=== PATIENT | male | born 1960 | race Two or more races ===

== ENCOUNTER 2024-06-11 15:14 | Emergency (ER) | payer OTHER ==
[~2024-06-11] VITALS: Ht 170.2 cm; Wt 81.6 kg
[2024-06-11] MEDS ORDERED: ONDANSETRON HCL/PF 4 MG/2 ML VIAL ONE (15:48)
[2024-06-11] MEDS ORDERED: MORPHINE SULFATE INJ 4 MG/ML DISP.SYRIN ONE (15:48)
[2024-06-11] MEDS: MORPHINE SULFATE INJ 2 MG/ML DISP.SYRIN IV ONE (15:56)
[2024-06-11] MEDS: ONDANSETRON HCL/PF 4 MG/2 ML VIAL IVP ONE (15:57)
[2024-06-11 16:11] LABS: BASOPHILS # (AUTO) 0.1 K/uL (0.0-0.2); BASOPHILS % (AUTO) 0.7 % (0.0-2.0); EOSINOPHILS # (AUTO) 0.1 K/uL (0.0-0.7); EOSINOPHILS % (AUTO) 0.5 % (0.0-6.0); HEMATOCRIT 45 % (39-51); HEMOGLOBIN 15.2 g/dL (13.5-17.5); LYMPHOCYTES # (AUTO) 1.6 K/uL (0.8-4.8); LYMPHOCYTES % (AUTO) 13.8 % (20.0-44.0); MEAN CORPUSCULAR HEMOGLOBIN 31 PG (26.0-33.0); MEAN CORPUSCULAR HGB CONC 34 g/dl (31.0-36.0); MEAN CORPUSCULAR VOLUME 93 fL (80-96); MONOCYTES # (AUTO) 0.8 K/uL (0.1-1.30); MONOCYTES % (AUTO) 6.5 % (2.0-12.0); NEUTROPHILS # (AUTO) 9.2 K/uL (1.8-8.9); NEUTROPHILS % (AUTO) 78.5 % (43.0-81.0); PLATELET COUNT (AUTO) 193 K/uL (150-450); RED BLOOD CELL COUNT(AUTO) 4.86 MIL/uL (4.5-6.0); RED CELL DISTRIBUTION WIDTH 13.8 % (11.5-15.0); WHITE BLOOD COUNT (AUTO) 11.8 K/uL (4.3-11.0)
[2024-06-11 16:21] LABS: CALCIUM, SERUM 8.8 mg/dL (8.5-10.1); CREATININE 1.2 mg/dL (0.6-1.3); POTASSIUM 3.9 mmol/L (3.5-5.1)
[2024-06-11 16:26] LABS: ALBUMIN 3.8 g/dL (3.4-5.0); BILIRUBIN,DIRECT 0.1 mg/dL (0.0-0.2); BILIRUBIN,TOTAL 0.5 mg/dL (0.2-1.0); TOTAL PROTEIN, SERUM 8.3 g/dL (6.4-8.2)
[2024-06-11 16:29] LABS: INR 0.99 (0.91-1.10); PARTIAL THROMBOPLASTIN TIME 24.1 SEC (24.3-34.3); PROTHROMBIN TIME 10.2 SECS (9.2-11.1)
[2024-06-11 17:56] LABS: APPEARANCE,URINE CLEAR (CLEAR); BILIRUBIN,URINE NEGATIVE (NEGATIVE); BLOOD, URINE TRACE-INTA Ery/uL (NEGATIVE); COLOR,URINE YELLOW (YELLOW); KETONES,URINE NEGATIVE (NEGATIVE); LEUKOCYTE ESTERASE ,URINE TRACE (NEGATIVE); NITRITE, URINE NEGATIVE (NEGATIVE); PROTEIN,URINE NEGATIVE (NEGATIVE); UGLUCOSE NEGATIVE (NEGATIVE); UROBILINOGEN,URINE 0.2 EU/dL (0.2)
[2024-06-11 19:00] LABS: ADD URINE CULTURE YES; BACTERIA,URINE Few /HPF (None Seen); SQUAMOUS EPITHELIAL CELL,UR Few /HPF (None Seen)
[2024-06-11] MEDS ORDERED: IBUP-1955 PO (19:08)
[2024-06-11] MEDS ORDERED: CEPH-570 PO (19:08)
[2024-06-11 19:24] VITALS: BP 133/74; TEMP 98.3; O2SAT 99
== END 2024-06-11 19:24 | disposition home or self-care (01) ==
LOC: ER 15:20
DX: N20.2 Calculus of kidney with calculus of ureter (principal); F17.200 Nicotine dependence, unspecified, uncomplicated
CPT/HCPCS: 99285; 74176; 96374; 96375; 93005; 85025; 80048; 87086; 83690; 80076; 81001; 36415; 85730; J2270; J2405

== ENCOUNTER 2025-01-19 20:55 | Inpatient (IN) | payer MEDICARE, OTHER ==
[~2025-01-19] VITALS: Ht 175.3 cm; Wt 72.6 kg
[~2025-01-19 20:55] MED LIST: CEPH-570 PO; IBUP-1955 PO
[2025-01-19] MEDS ORDERED: ACETAMINOPHEN ES 500 MG TABLET ONE (23:04)
[2025-01-19] MEDS: IV NS 0.9% 1,000 ML BAG IV ONE (23:08)
[2025-01-19] MEDS: ACETAMINOPHEN ES 500 MG TABLET PO ONE (23:09)
[2025-01-19 23:10] LABS: PLATELET COUNT (AUTO) 171 K/uL (150-450); RED BLOOD CELL COUNT(AUTO) 4.17 MIL/uL (4.5-6.0); RED CELL DISTRIBUTION WIDTH 14.1 % (11.5-15.0); WHITE BLOOD COUNT (AUTO) 15.0 K/uL (4.3-11.0)
[2025-01-19 23:19] LABS: CALCIUM, SERUM 8.8 mg/dL (8.5-10.1); CREATININE 1.0 mg/dL (0.6-1.3); SODIUM SERUM 125 mmol/L (136-145); UREA NITROGEN, BLOOD 16 mg/dL (7-18)
[2025-01-19 23:29] LABS: ASPARTATE AMINOTRANSFERASE 34 U/L (15-37); TOTAL PROTEIN, SERUM 8.3 g/dL (6.4-8.2)
[2025-01-20] MEDS: DOXYCYCLINE 100 MG in IV D5W 100 ML IV ONE
[2025-01-20] MEDS ORDERED: CEFTRIAXONE 1GM BAG (ER ONLY) 50 ML IV ONE (00:22)
[2025-01-20] MEDS ORDERED: DOXYCYCLINE 100 MG VIAL ONE (00:22)
[2025-01-20] MEDS: IV NS 0.9% 1,000 ML BAG IV ONE (00:28)
[2025-01-20] MEDS: CEFTRIAXONE 1 G in IV D5W 50 ML IV ONE (00:28)
[2025-01-20] MEDS: QUETIAPINE FUMARATE 25 MG TABLET PO STA (03:07)
[2025-01-20] MEDS: IBUPROFEN 600 MG TABLET PO ONE (03:10)
[2025-01-20] MEDS: ACETAMINOPHEN ES 500 MG TABLET PO ONE (03:10)
[2025-01-20] MEDS ORDERED: IPRATROPIUM NEB FS 0.5 MG/2.5 ML AMPUL.NEB NEB PRN (06:00)
[2025-01-20] MEDS ORDERED: MAG HYDROX/AL HYDROX/SIMETH 30 ML UDC PO PRN (06:00)
[2025-01-20] MEDS ORDERED: AZITHROMYCIN 500 MG in IV D5W 250 ML IV SCH (06:00)
[2025-01-20] MEDS ORDERED: ALBUTEROL FS 2.5 MG/3 ML VIAL.NEB NEB PRN (06:00)
[2025-01-20] MEDS ORDERED: ONDANSETRON HCL/PF 4 MG/2 ML VIAL IVP PRN (06:00)
[2025-01-20] MEDS ORDERED: MAGNESIUM HYDROXIDE 30 ML UDC PO PRN (06:00)
[2025-01-20 07:06] LABS: PLATELET COUNT (AUTO) 180 K/uL (150-450); RED BLOOD CELL COUNT(AUTO) 4.05 MIL/uL (4.5-6.0); RED CELL DISTRIBUTION WIDTH 14.0 % (11.5-15.0); WHITE BLOOD COUNT (AUTO) 11.2 K/uL (4.3-11.0)
[2025-01-20 07:36] LABS: CALCIUM, SERUM 8.4 mg/dL (8.5-10.1); CREATININE 1.0 mg/dL (0.6-1.3); PHOSPHORUS 2.7 mg/dL (2.5-4.9); SODIUM SERUM 133.0 mmol/L (136-145); UREA NITROGEN, BLOOD 15.0 mg/dL (7-18)
[2025-01-20 08:00] VITALS: BP 119/81; TEMP 97.9; O2SAT 97
[2025-01-20] MEDS: PANTOPRAZOLE 40 MG TABLET.DR PO SCH (08:15)
[2025-01-20] MEDS: ACETAMINOPHEN 325 MG TABLET PO PRN (08:16)
[2025-01-20] MEDS: IV NS 0.9% 1,000 ML IV PRN (08:16)
[2025-01-20] MEDS: POTASSIUM CHLORIDE 20 MEQ TAB.PRT.SR PO SCH (09:42)
[2025-01-20] MEDS: AZITHROMYCIN 500 MG in IV D5W 250 ML IV SCH (09:42)
[2025-01-20 16:00] VITALS: BP 140/86; TEMP 100; O2SAT 95
[2025-01-21] MEDS: CEFTRIAXONE 1 G in IV D5W 50 ML IV SCH (00:33)
[2025-01-21 06:16] LABS: PLATELET COUNT (AUTO) 218 K/uL (150-450); RED BLOOD CELL COUNT(AUTO) 3.90 MIL/uL (4.5-6.0); RED CELL DISTRIBUTION WIDTH 14.4 % (11.5-15.0); WHITE BLOOD COUNT (AUTO) 9.6 K/uL (4.3-11.0)
[2025-01-21 06:34] LABS: ASPARTATE AMINOTRANSFERASE 37.0 U/L (15-37); CALCIUM, SERUM 8.8 mg/dL (8.5-10.1); CREATININE 0.7 mg/dL (0.6-1.3); PHOSPHORUS 2.6 mg/dL (2.5-4.9); SODIUM SERUM 133.0 mmol/L (136-145); TOTAL PROTEIN, SERUM 8.0 g/dL (6.4-8.2); UREA NITROGEN, BLOOD 10.0 mg/dL (7-18)
[2025-01-21 08:00] VITALS: BP 151/85; TEMP 99.4; O2SAT 96
[2025-01-21] MEDS: HYDROCODONE/APAP 5/325MG TABLET PO PRN (09:30)
[2025-01-21 16:00] VITALS: BP 128/84; TEMP 98.8; O2SAT 96
[2025-01-22] VITALS: BP 124/77; TEMP 98.4; O2SAT 96
[2025-01-22 06:22] LABS: PLATELET COUNT (AUTO) 241 K/uL (150-450); RED BLOOD CELL COUNT(AUTO) 3.87 MIL/uL (4.5-6.0); RED CELL DISTRIBUTION WIDTH 14.5 % (11.5-15.0); WHITE BLOOD COUNT (AUTO) 8.1 K/uL (4.3-11.0)
[2025-01-22 07:52] LABS: ASPARTATE AMINOTRANSFERASE 45.0 U/L (15-37); CALCIUM, SERUM 8.2 mg/dL (8.5-10.1); CREATININE 0.7 mg/dL (0.6-1.3); PHOSPHORUS 2.9 mg/dL (2.5-4.9); SODIUM SERUM 132.0 mmol/L (136-145); TOTAL PROTEIN, SERUM 7.8 g/dL (6.4-8.2); UREA NITROGEN, BLOOD 9.0 mg/dL (7-18)
[2025-01-22 08:00] VITALS: BP 139/97; TEMP 98.2; O2SAT 98
[2025-01-22] MEDS: AZITHROMYCIN 250 MG TABLET PO SCH (08:24)
[2025-01-22] MEDS ORDERED: LEVO750T46 PO (13:21)
== END 2025-01-22 15:00 | disposition home or self-care (01) | DRG 194 ==
LOC: ER 21:14 → MEDSG1 01-20 05:58
DX: J15.9 Unspecified bacterial pneumonia (principal); E22.2 Syndrome of inappropriate secretion of antidiuretic hormone; D64.9 Anemia, unspecified; G93.31 Postviral fatigue syndrome; E87.6 Hypokalemia; E86.0 Dehydration; Z20.822 Contact with and (suspected) exposure to COVID-19; Z87.891 Personal history of nicotine dependence; E80.6 Other disorders of bilirubin metabolism
CPT/HCPCS: 36415; 70450-TC; 71045-TC; 71250-TC; 80048-TC; 80053-TC; 83605-TC; 83735-TC; 84100-TC; 84443-TC; 84484-TC; 84550-TC; 85025-TC; 86140-TC; 87040-TC; G0378; J0456; J0696; J3490; J7030; J7060